=== PATIENT | female | born 1975 | race Caucasian/White ===

== ENCOUNTER 2018-06-19 06:10 | Day surgery (SDC) | payer OTHER, MEDICAID ==
[~2018-06-19] VITALS: Ht 154.9 cm; Wt 69.1 kg
[~2018-06-19 06:10] MED LIST: ACET650S27 PR; ASPI-1182 PO; BECL10.6 IH; CHOL200059 PO; DOCU250C91 PO; LEVO50 PO; MAGN64TA9 PO; MULT-248 PO
[2018-06-19] MEDS ORDERED: RINGERS SOLUTION,LACTATED 1,000 ML IV ONE ×2 (06:22→07:00)
[2018-06-19] MEDS ORDERED: MIDAZOLAM HCL 5 MG/ML VIAL ONE (07:15)
[2018-06-19] MEDS ORDERED: ONDANSETRON HCL 4 MG/2 ML VIAL ONE (07:56)
[2018-06-19] MEDS ORDERED: ONDANSETRON HCL 4 MG/2 ML VIAL IVP ONE (08:00)
[2018-06-19] MEDS ORDERED: METOCLOPRAMIDE HCL 5 MG/ML 2 ML VIAL ONE (08:36)
[2018-06-19] MEDS ORDERED: DEXAMETHASONE SOD PHOS 4 MG/ML VIAL ONE (08:36)
[2018-06-19] MEDS ORDERED: METOCLOPRAMIDE HCL 5 MG/ML 2 ML VIAL IVP ONE (08:40)
[2018-06-19] MEDS ORDERED: DEXAMETHASONE SOD PHOS 4 MG/ML VIAL IVP ONE (08:40)
== END 2018-06-19 10:20 | disposition home or self-care (01) ==
LOC: SURGERY 06:10
PROVIDERS: ATTEND Dentist General Practice
DX: K05.30 Chronic periodontitis, unspecified (principal); Z53.8 Procedure and treatment not carried out for other reasons; J45.998 Other asthma; E03.9 Hypothyroidism, unspecified; K21.9 Gastro-esophageal reflux disease without esophagitis; K59.00 Constipation, unspecified; N31.9 Neuromuscular dysfunction of bladder, unspecified; F78 Other intellectual disabilities; G80.8 Other cerebral palsy; F72 Severe intellectual disabilities; Z79.82 Long term (current) use of aspirin; Z91.011 Allergy to milk products; Z79.891 Long term (current) use of opiate analgesic; Z98.890 Other specified postprocedural states; Z79.899 Other long term (current) drug therapy
CPT/HCPCS: 36415; 84702; J1100; J2250; J2405; J2765; J7120

== ENCOUNTER 2018-07-05 05:42 | Day surgery (SDC) | payer OTHER, MEDICAID ==
[~2018-07-05] VITALS: Ht 154.9 cm; Wt 69.1 kg
[2018-07-05] MEDS ORDERED: PROPOFOL 1% 20 ML VIAL IVP ONE (05:43)
[2018-07-05] MEDS ORDERED: LIDOCAINE/PF 2% 5 ML VIAL INJ ONE (05:43)
[2018-07-05] MEDS ORDERED: DEXAMETHASONE SOD PHOS 4 MG/ML VIAL IVP ONE (05:43)
[2018-07-05] MEDS ORDERED: SUCCINYLCHOLINE CHLORIDE 20 MG/ML 10 ML VIAL IVP ONE (05:43)
[2018-07-05] MEDS ORDERED: ONDANSETRON HCL 4 MG/2 ML VIAL IVP ONE (05:43)
[2018-07-05] MEDS ORDERED: FentaNYL CITRATE-PF 100 MCG/2 ML VIAL IVP ONE (05:43)
[2018-07-05] MEDS ORDERED: RINGERS SOLUTION,LACTATED 1,000 ML IV ONE ×2 (06:10→07:00)
[2018-07-05] MEDS ORDERED: AMPICILLIN SODIUM 1 GM/VIAL ONE (08:03)
[2018-07-05] MEDS ORDERED: SODIUM CHLORIDE 0.9% 50 ML ONE (08:21)
[2018-07-05] MEDS ORDERED: OXYMETAZOLINE HCL 0.05% 15 ML NASAL SPRAY NASAL ONE (09:19)
[2018-07-05] MEDS ORDERED: FentaNYL CITRATE-PF 100 MCG/2 ML VIAL IVP PRN (10:00)
[2018-07-05] MEDS ORDERED: MEPERIDINE-PF 25 MG/ML VIAL IVP PRN (10:00)
[2018-07-05] MEDS ORDERED: HYDROmorphone 2 MG/ML SYRINGE IVP PRN (10:00)
[2018-07-05] MEDS ORDERED: OXYGEN THERAPY IH SCH (20:00)
== END 2018-07-05 11:45 | disposition home or self-care (01) ==
LOC: SURGERY 05:42
PROVIDERS: ATTEND Dentist General Practice
DX: K05.30 Chronic periodontitis, unspecified (principal); K03.6 Deposits [accretions] on teeth; G80.8 Other cerebral palsy; J45.998 Other asthma; I10 Essential (primary) hypertension; E66.9 Obesity, unspecified; K21.9 Gastro-esophageal reflux disease without esophagitis; N31.8 Other neuromuscular dysfunction of bladder; E03.9 Hypothyroidism, unspecified; F72 Severe intellectual disabilities; Z79.891 Long term (current) use of opiate analgesic; Z68.28 Body mass index [BMI] 28.0-28.9, adult; Z79.82 Long term (current) use of aspirin; Z91.011 Allergy to milk products; Z98.890 Other specified postprocedural states; Z79.899 Other long term (current) drug therapy
CPT/HCPCS: 41899; J0290; J0330; J1100; J2405; J2704; J3010; J3490; J7050; J7120

== ENCOUNTER 2023-12-21 06:15 | Day surgery (SDC) | payer OTHER, MEDICAID ==
[~2023-12-21] VITALS: Ht 154.9 cm; Wt 83.6 kg
[~2023-12-21 06:15] MED LIST changes: +ACET650S24 PR; -ACET650S27 PR; -ASPI-1182 PO; +ASPI-1444 PO; +CHOL200016 PO; -CHOL200059 PO; +DOCU-412 PO; -DOCU250C91 PO; +RINGERS SOLUTION,LACTATED 1,000 ML IV ONE
[2023-12-21] MEDS ORDERED: AMPICILLIN SODIUM 2 GM/NS 100 ML IV ONE (07:50)
[2023-12-21] MEDS: RINGERS SOLUTION,LACTATED 1,000 ML IV ONE (08:41)
[2023-12-21 08:45] LABS: BASOPHILS % (AUTO) 0.3 % (0.0-2.0); EOSINOPHILS % (AUTO) 1.7 % (1.0-6.0); HEMATOCRIT 35.8 % (36-46); HEMOGLOBIN 11.5 g/dL (12.0-16.0); LYMPHOCYTES # (AUTO) 1.4 K/uL (1.0-4.8); LYMPHOCYTES % (AUTO) 17.5 % (22.0-44.0); MEAN CORPUSCULAR HEMOGLOBIN 29.8 pg (26.0-34.0); MEAN CORPUSCULAR HGB CONC 32.2 G/dL (31.0-37.0); MEAN CORPUSCULAR VOLUME 93 fL (80-100); MONOCYTES # (AUTO) 0.4 K/uL (0.1-1.0); MONOCYTES % (AUTO) 5.3 % (2.0-9.0); NEUTROPHILS # (AUTO) 5.9 K/uL (1.8-7.7); NEUTROPHILS % (AUTO) 75.2 % (40.0-70.0); RED BLOOD CELL COUNT(AUTO) 3.86 MIL/uL (4.00-5.20); RED CELL DISTRIBUTION WIDTH 14.5 % (11.5-14.5); WHITE BLOOD COUNT (AUTO) 7.9 K/uL (4.5-11.0)
[2023-12-21 08:47] LABS: ANION GAP 10 mmol/L (8-16); CALCIUM, TOTAL 9.6 mg/dL (8.8-10.5); CARBON DIOXIDE 27 mmol/L (22-29); CHLORIDE 103 mmol/L (98-107); CREATININE 0.89 mg/dL (0.60-1.30); GLOMERULAR FILTR. RATE CALC > 60 mL/min (>60); GLUCOSE,RANDOM 102 mg/dL (70-110); POTASSIUM 4.8 mmol/L (3.5-5.1); SODIUM SERUM 140 mmol/L (136-145); UREA NITROGEN, BLOOD 14 mg/dL (7-18)
[2023-12-21] MEDS ORDERED: FERR325T27 PO (08:50)
[2023-12-21] MEDS ORDERED: CHOL25TA4 PO (08:50)
[2023-12-21] MEDS ORDERED: ASCO500 PO (08:50)
[2023-12-21 08:52] LABS: ALANINE AMINOTRANSFERASE 18 U/L (12-78); ALBUMIN 3.6 g/dL (3.4-5.0); ALKALINE PHOSPHATASE 82 U/L (46-116); ASPARTATE AMINOTRANSFERASE 30 U/L (15-37); BILIRUBIN,TOTAL 0.3 mg/dL (0.1-1.0); TOTAL PROTEIN, SERUM 7.9 g/dL (6.4-8.2)
[2023-12-21 08:53] LABS: PROTHROMBIN TIME 10.5 SEC (9.4-11.6)
[2023-12-21 09:16] LABS: PLATELET COUNT (AUTO) 316 K/uL (150-450)
== END 2023-12-21 13:00 | disposition home or self-care (01) ==
LOC: SURGERY 06:15
PROVIDERS: ATTEND Dentist General Practice
DX: K02.9 Dental caries, unspecified (principal); K05.30 Chronic periodontitis, unspecified; J18.9 Pneumonia, unspecified organism; J44.9 Chronic obstructive pulmonary disease, unspecified; K21.9 Gastro-esophageal reflux disease without esophagitis; D64.9 Anemia, unspecified; E03.9 Hypothyroidism, unspecified; E66.9 Obesity, unspecified; Z68.34 Body mass index [BMI] 34.0-34.9, adult
CPT/HCPCS: 41899; 71045; 80053; 84703; 85025; 85610; 85730; 36415; 93005; J0290; J7120